=== PATIENT | male | born 1940 | race African-American/Black ===

== ENCOUNTER 2017-01-06 21:23 | Emergency (ER) | payer OTHER ==
[~2017-01-06] VITALS: Ht 172.7 cm; Wt 83.6 kg
[2017-01-06 23:26] VITALS: BP 130/70
== END 2017-01-06 23:35 | disposition home or self-care (01) | DRG 605 ==
LOC: ED 21:23
DX: S30.0XXA Contusion of lower back and pelvis, initial encounter (principal); E11.9 Type 2 diabetes mellitus without complications; F43.10 Post-traumatic stress disorder, unspecified; I10 Essential (primary) hypertension; V49.50XA Passenger injured in collision with unspecified motor vehicles in traffic accident, initial encounter